=== PATIENT | female | born 1945 | race Caucasian/White ===

== ENCOUNTER → 2018-06-23 | Outpatient (CLI) | payer MEDICARE, OTHER ==
[~2018-06-23] MED LIST: GADOBUTROL 7.5 MMOL/7.5 ML (GADAVIST) VIAL IV ONE
[2018-06-23 07:53] LABS: BUN/CREATININE RATIO 13; CREATININE SERUM 0.72 MG/DL (0.60-1.30); GFR ESTIMATED > 60
--- NOTE | 2018-06-23 11:04 | Diagnostic Imaging Report ---
PROCEDURE: MRI lumbar spine with and without contrast. TECHNIQUE: Multiplanar, multisequence MRI of the lumbar spine was performed with and without contrast. INDICATION: Back pain. COMPARISON: There are no prior studies available for comparison. FINDINGS: The T1 parasagittal images reveal that there is diffusely diminished signal throughout the inferior half of the vertebral body of L1. There is a 20% compression fracture of the superior endplate of L1. I suspect that this is chronic in nature. However, the abnormal signal involving the inferior aspect of the L1 vertebral body does suggest an acute/subacute bony abnormality. Also, there is an acute/subacute compression fracture of the inferior endplate of L3. Approximately one-third of the inferior aspect of the body of L3 is occupied by bone edema related to the fracture. In addition, there is also a mild (10-20%) compression deformity of the superior endplate of L5. This too is most likely acute or subacute in nature. There has been a prior kyphoplasty procedure of L2. There is a 30-40% compression deformity of the anterior half of the superior endplate of L4. This injury appears to be chronic in nature. In addition to the post-traumatic changes involving the spine, there is also degenerative disc and bony disease. At the T12-L1 level, there is compression of the ventral aspect of the thecal sac due to a disc bulge and to the retropulsion of the L1 vertebral body fracture. The AP diameter of the thecal sac is narrowed to 11.1 mm at this level. There is also mild narrowing of the neural foramen bilaterally at this level. At L1-2, there is trefoil stenosis. The AP diameter of the thecal sac is narrowed to 9.2 mm, and there is mild narrowing of the neural foramen bilaterally at this level. At L2-3, there is also trefoil stenosis with the AP diameter of the thecal sac measuring 10 mm. There is moderate narrowing of the neural foramen bilaterally at this level. At L3-4, the AP diameter of the thecal sac measures 10.8 mm. There is moderate narrowing of the neural foramen bilaterally, however. At L4-5, the AP diameter of the thecal sac measures 12.2 mm. However, there is moderately severe narrowing of the neural foramen bilaterally at this level, particularly on the right. At the L5-S1 level, there is spinal stenosis with the AP diameter of the thecal sac narrowed to 7.1 mm. There is also fairly severe narrowing of the neural foramen bilaterally, particularly on the right. There is no abnormal signal arising from the cord. There is no sign of a paraspinal mass. IMPRESSION: 1. There are acute/subacute compression fractures of L1, L3, and L5. There is no acute bony abnormality noted otherwise. 2. There is degenerative disc, ligamentous, and bony disease throughout the lumbar spine with multiple levels of spinal stenosis and neural foraminal narrowing as described above. 3. These results were discussed with Chiara at Dr. Nguyen Schwartz's office. Dictated by: Dictated on workstation # [id number]
== END ==
LOC: RAD 07:15
PROVIDERS: ATTEND Family Medicine
DX: Z01.818 Encounter for other preprocedural examination (principal); S32.010G Wedge compression fracture of first lumbar vertebra, subsequent encounter for fracture with delayed healing; S32.030G Wedge compression fracture of third lumbar vertebra, subsequent encounter for fracture with delayed healing; S32.050G Wedge compression fracture of fifth lumbar vertebra, subsequent encounter for fracture with delayed healing; M48.07 Spinal stenosis, lumbosacral region; M47.816 Spondylosis without myelopathy or radiculopathy, lumbar region; M89.9 Disorder of bone, unspecified; M51.36 Other intervertebral disc degeneration, lumbar region; Z98.890 Other specified postprocedural states
CPT/HCPCS: 36415; 72158; 82565; 84520

== ENCOUNTER → 2018-08-14 | Outpatient (CLI) | payer MEDICARE, OTHER ==
[2018-08-15 16:15] LABS: URINE IMMUNOFIXATION W/ INTERP Complete
[2018-08-16 13:17] LABS: IMMUNOFIX PATH REPORT NUMBER Complete (Complete)
== END ==
LOC: LAB 13:52
PROVIDERS: ATTEND Physician Assistant
DX: D47.9 Neoplasm of uncertain behavior of lymphoid, hematopoietic and related tissue, unspecified (principal)
CPT/HCPCS: 36415; 83883; 84155; 84165; 84166; 86334; 86335

== ENCOUNTER 2018-12-12 10:22 | Emergency (ER) | payer MEDICARE, OTHER ==
[~2018-12-12] VITALS: Ht 149.9 cm; Wt 65.8 kg
[2018-12-12 11:27] VITALS: BP 135/65
[2018-12-12] MEDS ORDERED: CLT4KB PO (11:27)
--- NOTE | 2018-12-12 11:33 | Diagnostic Imaging Report ---
PATIENT HISTORY: Constipation. TECHNIQUE: Frontal view of the chest. Frontal upright and supine views of the abdomen COMPARISON: None FINDINGS: Lung volumes are normal. No focal consolidation is seen. There is no pleural effusion or pneumothorax. The cardiac silhouette is normal in size. There is aortic atherosclerosis. A right shoulder arthroplasty is noted. No distended loops of small bowel are seen. There is qvejkted-za-ihcsdy stool throughout the colon. No large collection of free air seen. Multilevel kyphoplasty changes are noted throughout the thoracolumbar spine. IMPRESSION: 1. Moderate to marked stool in the colon, consistent with history of constipation. No distended loops of small bowel are seen. 2. No acute pulmonary abnormality seen. Dictated by: Dictated on workstation # [id number]
--- NOTE | 2018-12-12 11:47 | ED Abdominal Pain ---
General Chief Complaint: Abdominal/GI Problems Stated Complaint: BOWEL CONSTIPATION Nursing Triage Note: Patient states that last BM was two days ago and was very hard. Is on morphine at home twice daily and has had problems with constipation but has never been this bad. Is rating rectal pain at 8/10 at this time. Sepsis Screen: No Definite Risk Source of Information: Patient Exam Limitations: No Limitations History of Present Illness Date Seen by Provider: Dec 12, 2018 Time Seen by Provider: 11:15 Initial Comments Patient is 73-year-old female with history of chronic back pain with multiple kyphoplasty surgeries in the past 4 months who is currently taking morphine daily who presents with constipation with last bowel movement 2 days ago. Patient reports diffuse abdominal pain, distention and cramping and no nausea or vomiting. Timing/Duration: 3-4 Days Severity/Quality: Moderate Location: Generalized Abdomen Activities at Onset: None Modifying Factors: Improves With Other (pain medications) Associated Symptoms: Back Pain Allergies and Home Medications Allergies Coded Allergies: adhesive tape (Verified Allergy, Unknown, rash, 12/12/18) latex (Verified Allergy, Unknown, rash, 12/12/18) lidocaine (Verified Allergy, Unknown, rash, 12/12/18) Home Medications Peg/Electrolytes 4,000 Ml Soln, 4,000 ML PO Q30M Prescribed by: GABRIELLA ALAMO on 12/12/18 1127 Patient Home Medication List Home Medication List Reviewed: Yes Review of Systems Review of Systems Constitutional: no symptoms reported EENTM: No Symptoms Reported Respiratory: No Symptoms Reported Cardiovascular: No Symptoms Reported Gastrointestinal: See HPI Genitourinary: No Symptoms Reported Musculoskeletal: back pain Skin: see HPI Psychiatric/Neurological: See HPI Endocrine: See HPI Hematologic/Lymphatic: See HPI Past Zqpqthm-Yyoddn-Dccrou Hx Past Med/Social Hx: Reviewed Nursing Past Med/Soc Hx Patient Social History Alcohol Use: Denies Use Recreational Drug Use: No Smoking Status: Former Smoker Former Smoker, Quit: Dec 12, 1992 2nd Hand Smoke Exposure: No Recent Foreign Travel: No Contact w/Someone Who Travel: No Recent Infectious Disease Expo: No Recent Hopitalizations: No Physical Abuse: No Sexual Abuse: No Mistreated: No Fear: No Seasonal Allergies Seasonal Allergies: No Past Medical History Surgeries: Yes (kyphoplasty) Orthopedic Respiratory: No Cardiac: No Neurological: No Genitourinary: No Gastrointestinal: Yes Chronic Constipation Musculoskeletal: Yes Osteoporosis, Arthritis, Chronic Back Pain Endocrine: No HEENT: No Cancer: No Psychosocial: No Integumentary: No Physical Exam Vital Signs Vital Signs - First Documented 12/12/18 10:28 Temp 97.6 Pulse 80 Resp 18 B/P (MAP) 141/78 (99) Pulse Ox 100 Capillary Refill : Less Than 3 Seconds Height/Weight/BMI Height: 4'11.00" Weight: 145lbs. oz. 65.599653rv; BMI Method:Stated General Appearance: mild distress (secondary to pain) HEENT: PERRL/EOMI Neck: normal inspection Respiratory: chest non-tender Cardiovascular: normal peripheral pulses, regular rate, rhythm Gastrointestinal: soft, distended, tenderness (diffuse abdominal pain/distension), other Extremities: normal range of motion, non-tender Back: normal inspection, no CVA tenderness Focused Exam Sepsis Stage: Ruled Out Progress/Results/Core Measures Results/Orders My Orders Orders - GABRIELLA ALAMO DO Acute Abd Series (12/12/18 10:47) Vital Signs/I&O 12/12/18 12/12/18 10:28 11:27 Temp 97.6 98.2 Pulse 80 74 Resp 18 18 B/P (MAP) 141/78 (99) 135/65 (88) Pulse Ox 100 96 Blood Pressure Mean: 88 Departure Communication (Admissions) Patient abdominal pain with chronic constipation without evidence of obstruction. Recommend taking GoLytely and follow up with PCP. Return precautions reviewed. Impression Primary Impression: Constipation Disposition: 01 HOME, SELF-CARE Condition: Improved Departure-Patient Inst. Patient Instructions: Constipation, Adult (DC) Add. Discharge Instructions: Go home and drinks #8, 8 ounce glasses of water over the next 2 hours. Then start GoLYTELY 8 ounces every 20-30 minutes until you have consumed at least three quarters the bottle or achieved desired results. Follow up with your PCP for re-evaluation. Return to the ED if symptoms worsen. All discharge instructions reviewed with patient and/or family. Voiced understanding. Scripts Peg/Electrolytes (Golytely Solution) 4,000 Ml Soln 4000 ML PO Q30M, #1 EA Prov: GABRIELLA ALAMO DO 12/12/18 GABRIELLA ALAMO DO Dec 12, 2018 11:47
== END 2018-12-12 11:33 | disposition home or self-care (01) ==
LOC: EDUNIT# 10:22 → ER FS 10:23
DX: K59.00 Constipation, unspecified (principal); M81.0 Age-related osteoporosis without current pathological fracture; Z87.19 Personal history of other diseases of the digestive system; Z87.891 Personal history of nicotine dependence; Z88.8 Allergy status to other drugs, medicaments and biological substances
CPT/HCPCS: 74022

== ENCOUNTER → 2019-08-21 | Outpatient (CLI) | payer MEDICARE, OTHER ==
[~2019-08-21] MED LIST changes: +CLT4KB PO; -GADOBUTROL 7.5 MMOL/7.5 ML (GADAVIST) VIAL IV ONE
--- NOTE | 2019-08-21 10:55 | Diagnostic Imaging Report ---
EXAMINATION: Chest 2 view INDICATION: Shortness of breath. Cough. COMPARISON: Chest radiograph on 12/12/2018. FINDINGS: The lung volumes are normal. No focal consolidation is seen. No large pleural effusion or pneumothorax is seen. The cardiomediastinal silhouette is normal in size and contour. There is calcified aortic atherosclerotic plaque. No acute osseous abnormality is seen. Prior kyphoplasty changes are seen in the mid and lower thoracic spine. A right shoulder arthroplasty is noted. IMPRESSION: 1. No acute pleuroparenchymal process. Dictated by: Dictated on workstation # [id number]
== END ==
LOC: RAD FS 10:28
PROVIDERS: ATTEND Nurse Practitioner Family
DX: R06.02 Shortness of breath (principal)
CPT/HCPCS: 71046

== ENCOUNTER 2020-11-10 05:54 | Outpatient (CLI) | payer MEDICARE, OTHER ==
[~2020-11-10] VITALS: Ht 152.4 cm; Wt 67.6 kg
[2020-11-10] MEDS ORDERED: PANT40TA52 PO (13:37)
[2020-11-10] MEDS ORDERED: MULT-1136 PO (13:37)
[2020-11-10] MEDS ORDERED: ACHD5005 PO (13:37)
[2020-11-10] MEDS ORDERED: DOCU100C37 PO (13:37)
[2020-11-10] MEDS ORDERED: MV-M1TAB20 PO (13:37)
[2020-11-10] MEDS ORDERED: CALC600T91 PO (13:37)
[2020-11-10] MEDS ORDERED: PREG150C46 PO (13:37)
[2020-11-10] MEDS ORDERED: CITA10TA7 PO (13:37)
== END 2020-11-10 15:12 | disposition home or self-care (01) ==
LOC: PREOP 05:54
PROVIDERS: ATTEND Surgery
DX: Z01.818 Encounter for other preprocedural examination (principal)

== ENCOUNTER → 2020-11-14 | Outpatient (CLI) | payer MEDICARE, OTHER ==
[~2020-11-14] MED LIST changes: +ACHD5005 PO; +CALC600T91 PO; +CITA10TA7 PO; +DOCU100C37 PO; +MULT-1136 PO; +MV-M1TAB20 PO; +PANT40TA52 PO; +PREG150C46 PO
== END ==
LOC: LAB FS 10:20
PROVIDERS: ATTEND Surgery
DX: Z01.812 Encounter for preprocedural laboratory examination (principal); K21.9 Gastro-esophageal reflux disease without esophagitis; Z20.822 Contact with and (suspected) exposure to COVID-19
CPT/HCPCS: 87635

== ENCOUNTER 2020-11-17 08:22 | Day surgery (SDC) | payer MEDICARE, OTHER ==
[~2020-11-17] VITALS: Ht 152 cm; Wt 67.6 kg
[2020-11-17] VITALS (7 sets, daily range): BP systolic 119–146; BP diastolic 56–96
[2020-11-17] MEDS ORDERED: LACTATED RINGERS 1,000 ML IV STA (08:28)
[2020-11-17] MEDS ORDERED: HURRICAINE EXT TUBE (BENZOCAINE) XX PRN (08:30)
[2020-11-17] MEDS ORDERED: LACTATED RINGERS 1,000 ML IV ONE (08:30)
--- NOTE | 2020-11-17 09:27 | Progress Note-Pre Operative ---
Pre-Operative Progress Note H&P Reviewed The H&P was reviewed, patient examined and no changes noted. Time Seen by Provider: 09:24 Date H&P Reviewed: Nov 17, 2020 Time H&P Reviewed: 09:24 Pre-Operative Diagnosis: GERD, Dysphagia SANA GALLEGO DO Nov 17, 2020 09:27
[2020-11-17] MEDS ORDERED: MIDAZOLAM 2 MG/2 ML (VERSED) VIAL ONE (10:35)
[2020-11-17] MEDS ORDERED: PROPOFOL INJECTION 50 ML IV ONE (10:36)
--- NOTE | 2020-11-17 10:55 | Progress Note-Post Operative ---
Post-Operative Progess Note Surgeon (s)/Turfgrass Technician (s) Surgeon SANA GALLEGO DO Turfgrass Technician: none Pre-Operative Diagnosis GERD, Dysphagia Post-Operative Diagnosis Gastritis Hiatal hernia esophageal ulcer Procedure & Operative Findings Date of Procedure 11/17/20 Procedure Performed/Findings EGD with bx PROCEDURE NOTE: After informed consent was obtained, the patient was brought to the endoscopy suite, placed in bed in left lateral decubitus position. She was administered IV sedation by the GEOTHERMAL FIELD TECHNICIAN who then monitored vitals the entire time, heart rate, blood pressure and pulse ox and the scope was inserted down the mouth through the esophagus into the stomach. On the way down, noted some an esophageal ulcer, took a picture, pushed into the stomach, pushed past the antrum into the duodenum. Duodenum looked good. Pulled back and did a biopsy of antrum, then retroflexed the scope, saw a large hiatal hernia, took a picture of this and then did a biopsy of the body of the stomach. Then pulled the scope into the GE junction, took another picture of the hiatal hernia and then did a biopsy of the GE junction and tried to get a biopsy of the ulcer. Pushed the scope back into the stomach, suctioned all the air out of the stomach. At this point pulled the scope up the esophagus and out the mouth. The patient tolerated the procedure, and she recovered in endoscopy suite. Anesthesia Type IV sedation by GEOTHERMAL FIELD TECHNICIAN Estimated Blood Loss Estimated blood loss (mL): scant Specimens/Packing Specimens Removed antral bx body of stomach bx GE jxn bx SANA GALLEGO DO Nov 17, 2020 10:55
--- NOTE | 2020-11-17 10:56 | Endoscopy Discharge Instruct ---
Endo Procedure/Findings Findings 1.: Carey's Esophagus 2.: Hiatal Hernia 3.: Gastritis Discharge Instructions - Activity: You might feel a little sleepy until tomorrow. This is due to the medicine you received to relax you. Until tomorrow, you should: NOT drive a car, operate machinery or power tools. NOT drink any alcoholic beverages. NOT make any important decisions or sign importortant papers. Do not return to work until tomorrow, unless otherwise instructed. Resume previous activities tomorrow. Diet: Start by taking liquids. If you tolerate liquids, advance to solid food. 1.: EGD in 6-8 weeks Notify Physician - If you experience excessive bleeding, unusual abdominal pain, fever, or chest pain, contact your doctor immediately. SANA GALLEGO DO Nov 17, 2020 10:56
--- NOTE | 2020-11-17 13:13 | Anesthesia-General Post-Op ---
MAC Patient Condition Mental Status/LOC: Same as Preop Cardiovascular: Satisfactory Nausea/Vomiting: Absent Respiratory: Satisfactory Pain: Controlled Complications: Absent Post Op Complications Complications None Follow Up Care/Instructions Patient Instructions None needed. Anesthesiology Discharge Order Discharge Order Patient is doing well, no complaints, stable vital signs, no apparent adverse anesthesia problems. No complications reported per nursing. GENNARO MELARA CRNA Nov 17, 2020 13:13
== END 2020-11-17 11:45 | disposition home or self-care (01) ==
LOC: ENDO 08:22
PROVIDERS: ATTEND Surgery
DX: K29.50 Unspecified chronic gastritis without bleeding (principal); K21.9 Gastro-esophageal reflux disease without esophagitis; K21.00 Gastro-esophageal reflux disease with esophagitis, without bleeding; K22.10 Ulcer of esophagus without bleeding; K44.9 Diaphragmatic hernia without obstruction or gangrene; M19.90 Unspecified osteoarthritis, unspecified site; Z79.899 Other long term (current) drug therapy; Z79.891 Long term (current) use of opiate analgesic; Z80.0 Family history of malignant neoplasm of digestive organs; Z83.3 Family history of diabetes mellitus
CPT/HCPCS: 88305

== ENCOUNTER → 2021-10-15 | Outpatient (CLI) | payer MEDICARE, OTHER ==
[~2021-10-15] MED LIST changes: -CITA10TA7 PO; +CITA10TA9 PO
--- NOTE | 2021-10-15 14:14 | Diagnostic Imaging Report ---
INDICATION: Bilateral osteoarthritis of knees. COMPARISON: None. FINDINGS: Multiple radiographic views of the bilateral knees were obtained. There is no acute fracture or dislocation on either side. Osseous structures are intact. Joint spaces are maintained, although there are tricompartmental osteoarthritic changes. These changes are greatest involving the patellar trochlear compartment, right greater than left. This consists of joint space narrowing with osteophyte formations. Note is also made of chondrocalcinosis. There is no large joint effusion. No unexpected radiopaque foreign bodies are seen. IMPRESSION: 1. No acute fracture or dislocation of either knee. 2. Moderate osteoarthritic changes, right greater than left. 3. Chondrocalcinosis. Findings can be seen with underlying CPPD. Dictated by: Dictated on workstation # [id number]
== END ==
LOC: RAD FS 11:28
PROVIDERS: ATTEND Family Medicine
DX: M17.0 Bilateral primary osteoarthritis of knee (principal); M11.20 Other chondrocalcinosis, unspecified site

== ENCOUNTER 2021-12-03 05:33 | Outpatient (CLI) | payer MEDICARE, OTHER ==
[~2021-12-03] VITALS: Ht 152.4 cm; Wt 64.4 kg
== END 2021-12-03 12:29 | disposition home or self-care (01) ==
LOC: PREOP 05:33
PROVIDERS: ATTEND Surgery
DX: Z01.818 Encounter for other preprocedural examination (principal)

== ENCOUNTER 2021-12-14 08:17 | Day surgery (SDC) | payer MEDICARE, OTHER ==
[~2021-12-14] VITALS: Ht 152.4 cm; Wt 64.4 kg
[2021-12-14] MEDS ORDERED: LACTATED RINGERS 1,000 ML IV STA (08:19)
[2021-12-14 08:30] VITALS: BP 135/53
[2021-12-14] MEDS ORDERED: HURRICAINE EXT TUBE (BENZOCAINE) XX PRN (08:30)
--- NOTE | 2021-12-14 09:49 | Progress Note-Pre Operative ---
Pre-Operative Progress Note Date of Available H&P: Dec 01, 2021 Date H&P Reviewed: Dec 14, 2021 Time H&P Reviewed: 09:47 History & Physical: H&P Reviewed, Patient Examed, No changes noted Pre-Operative Diagnosis: Gastritis, Esophagitis SANA GALLEGO DO Dec 14, 2021 09:49
[2021-12-14] MEDS ORDERED: proPOfol 200 MG/20 ML (DIPRIVAN) VIAL IV ONE (10:09)
[2021-12-14 10:38] VITALS: BP 112/54
--- NOTE | 2021-12-14 10:40 | Progress Note-Post Operative ---
Post-Operative Progess Note Surgeon (s)/Artificial Plastic Eye Maker (s) Surgeon SANA GALLEGO DO Artificial Plastic Eye Maker: none Pre-Operative Diagnosis Gastritis, Esophagitis Post-Operative Diagnosis Gastritis Large hiatal hernia Procedure & Operative Findings Date of Procedure 12/14/21 Procedure Performed/Findings EGD with bx PROCEDURE NOTE: After informed consent was obtained, the patient was brought to the endoscopy suite, placed in bed in left lateral decubitus position. She was administered IV sedation by the OPERATOR MAINTAINER who then monitored vitals the entire time, heart rate, blood pressure and pulse ox and the scope was inserted down the mouth through the esophagus into the stomach. On the way down, noted some mild esophagitis, took a picture, pushed into the stomach and past the antrum into the duodenum. Duodenum looked good. Pulled back and did a biopsy of antrum (which had some mild inflammation) then retroflexed the scope, saw a large 2-3 cm hiatal hernia and took a picture of this. Next pulled the scope into the GE junction, took another picture of the hiatal hernia and then did a biopsy of the GE junction. Pushed the scope back into the stomach, suctioned all the air out of the stomach. At this point pulled the scope up the esophagus and out the mouth. The patient tolerated the procedure, and she recovered in endoscopy suite. Anesthesia Type IV sedation by OPERATOR MAINTAINER Estimated Blood Loss Estimated blood loss (mL): scant Specimens/Packing Specimens Removed antral bx GE jxn bx SANA GALLEGO DO Dec 14, 2021 10:40
[2021-12-14 10:43] VITALS: BP 123/64
--- NOTE | 2021-12-14 10:44 | Endoscopy Discharge Instruct ---
Endo Procedure/Findings Findings 1.: Gastritis 2.: Hiatal Hernia Discharge Instructions - Activity: You might feel a little sleepy until tomorrow. This is due to the medicine you received to relax you. Until tomorrow, you should: NOT drive a car, operate machinery or power tools. NOT drink any alcoholic beverages. NOT make any important decisions or sign importortant papers. Do not return to work until tomorrow, unless otherwise instructed. Resume previous activities tomorrow. Diet: Start by taking liquids. If you tolerate liquids, advance to solid food. 1.: EGD in 1 year Notify Physician - If you experience excessive bleeding, unusual abdominal pain, fever, or chest pain, contact your doctor immediately. SANA GALLEGO DO Dec 14, 2021 10:44
[2021-12-14 10:45] VITALS: BP 123/64
[2021-12-14 11:13] VITALS: BP 134/56
--- NOTE | 2021-12-14 12:23 | Anesthesia-General Post-Op ---
MAC Patient Condition Mental Status/LOC: Same as Preop Cardiovascular: Satisfactory Nausea/Vomiting: Absent Respiratory: Satisfactory Pain: Controlled Complications: Absent Post Op Complications Complications None Follow Up Care/Instructions Patient Instructions None needed. Anesthesiology Discharge Order Discharge Order Patient is doing well, no complaints, stable vital signs, no apparent adverse anesthesia problems. No complications reported per nursing. DALILA OLIVER CRNA Dec 14, 2021 12:23
== END 2021-12-14 11:22 | disposition home or self-care (01) ==
LOC: ENDO 08:17
PROVIDERS: ATTEND Surgery
DX: K29.50 Unspecified chronic gastritis without bleeding (principal); K21.00 Gastro-esophageal reflux disease with esophagitis, without bleeding; K44.9 Diaphragmatic hernia without obstruction or gangrene; Z91.040 Latex allergy status; Z79.899 Other long term (current) drug therapy; E66.9 Obesity, unspecified; Z68.27 Body mass index [BMI] 27.0-27.9, adult
CPT/HCPCS: 88305

== ENCOUNTER → 2022-04-14 | Outpatient (CLI) | payer MEDICARE, OTHER ==
--- NOTE | 2022-04-14 17:28 | Diagnostic Imaging Report ---
EXAMINATION: Chest 2 view HISTORY: Acute bronchitis due to other specific organisms COMPARISON: 08/21/2019. FINDINGS: Heart size and pulmonary vasculature are normal. There is redemonstrated tortuosity of the aorta which has been present from radiographs dating back to 12/12/2018. The lungs are clear without consolidation, pleural effusion or pneumothorax. There is multilevel thoracolumbar vertebral augmentation and compression deformities. Surgical changes from right shoulder arthroplasty. IMPRESSION: No acute radiographic abnormality in the chest. Dictated by: Dictated on workstation # [id number]
== END ==
LOC: RAD FS 16:59
PROVIDERS: ATTEND Family Medicine
DX: J20.8 Acute bronchitis due to other specified organisms (principal)
CPT/HCPCS: 71046

== ENCOUNTER → 2022-07-26 | Outpatient (CLI) | payer MEDICARE, OTHER ==
--- NOTE | 2022-07-26 16:24 | Diagnostic Imaging Report ---
INDICATION: Cervicalgia COMPARISON: None available. TECHNIQUE: 3 radiographs of the cervical spine dated 07/26/2022. FINDINGS: Alignment of the cervical spine is well maintained. Besides mild endplate degenerative changes, vertebral body heights are well-maintained. Moderate disc space height loss at C3/C4, C4/C5, and C5/C6. Mild multilevel facet joint degenerative changes. Vertebroplasty changes within the thoracic spine are partially visualized. The lateral masses are well-seated. The dens is unremarkable. No acute fracture. Shoulder arthroplasty is partially visualized. Prevertebral soft tissues are unremarkable. IMPRESSION: No acute osseous abnormality with mild to moderate multilevel degenerative changes within the cervical spine. Dictated by: Dictated on workstation # [id number]
== END ==
LOC: RAD FS 11:54
PROVIDERS: ATTEND Family Medicine
DX: M47.812 Spondylosis without myelopathy or radiculopathy, cervical region (principal)
CPT/HCPCS: 72040

== ENCOUNTER → 2022-10-28 | Outpatient (CLI) | payer MEDICARE, OTHER ==
--- NOTE | 2022-10-28 15:48 | Diagnostic Imaging Report ---
CLINICAL HISTORY: Neck pain. COMPARISON: 07/26/2022. TECHNIQUE: 3 views of the cervical spine. FINDINGS: There is no acute fracture or dislocation of the cervical spine. Alignment is anatomic. Vertebral body heights are maintained. Degenerative changes are present in the cervical spine with disc height loss, marginal osteophytes, and uncovertebral arthropathy. The included lungs are clear. IMPRESSION: 1. No acute fracture or dislocation in the cervical spine. Stable degenerative changes. If indicated consider MRI of the cervical spine to further evaluate. Dictated by: Dictated on workstation # [id number]
== END ==
LOC: RAD FS 11:30
PROVIDERS: ATTEND Family Medicine
DX: M47.812 Spondylosis without myelopathy or radiculopathy, cervical region (principal)
CPT/HCPCS: 72040